=== PATIENT | male | born 1980 | race Caucasian/White ===

== ENCOUNTER 2017-02-21 22:41 | Emergency (ER) | payer OTHER ==
--- NOTE | ~2017-02-21 | ER ---
PATIENT'S NAME: HIEN ORELLANA [facility] AGE: 36 Y [address] ROOM: [place] [address] LOCATION: [facility] ADMIT DATE: 02/21/2017 ER/Outpatient Report DISCHARGE DATE: 02/22/2017 FAMILY PHYSICIAN: PHYSICIAN, NO ATTENDING PHYSICIAN: Harjeet Andrade CHIEF COMPLAINT: Chest and back pain. HISTORY OF PRESENT ILLNESS: The patient states that he had this 1 time when he was 16. He experiences a very focal sharp stabbing pain. It is worse with motion and deep breathing over the left chest that is point tender. It is over the sixth rib. He does feel occasionally in his back. He has been working at [employer] and feels like the symptoms were getting worse. He has been taking Naprosyn twice daily, but just wanted to get things checked out to make sure this was not something different. He is a smoker. His symptoms had been intermittent and lasts between minutes to hours over the last several days. His current episode has been present for 3 hours. FAMILY HISTORY: He has a family history of heart disease, but no personal history. No other medical issues. PAST MEDICAL HISTORY: Documented on the record and reviewed by me. SOCIAL HISTORY: Documented on the record and reviewed by me. MEDICATIONS: Documented on the record and reviewed by me. ALLERGIES: DOCUMENTED ON THE RECORD AND REVIEWED BY ME. REVIEW OF SYSTEMS: All systems reviewed and negative except as noted in the HPI. PHYSICAL EXAMINATION: VITAL SIGNS: Blood pressure 151/70, pulse is 69, respiratory rate is 16, temperature 98.7, SpO2 is 97% on room air. Pain is 8/10. GENERAL: Age-appropriate male. No obvious pain or distress. Resting comfortably on exam table talking on his phone. NEUROLOGIC: Awake and alert. GCS 15. No focal deficits. No obvious PATIENT'S NAME: HIEN ORELLANA [facility] AGE: 36 Y [address] ROOM: [place] [address] LOCATION: [facility] ADMIT DATE: 02/21/2017 ER/Outpatient Report DISCHARGE DATE: 02/22/2017 FAMILY PHYSICIAN: PHYSICIAN, NO ATTENDING PHYSICIAN: Harjeet Andrade asymmetry on exam. HEENT: Normocephalic, atraumatic. Eyes are PERRL. Oropharynx is clear. Teeth in poor repair. NECK: Supple. Trachea is midline. CHEST: Heart is regular rate and rhythm with no murmurs. LUNGS: Clear to auscultation bilaterally with no rhonchi, wheezes, or rales. There is point tenderness which exactly reproduces pain over the left sixth costochondral junction. It is not tender around that spot. It is only on that spot. No erythema. No rashes. BACK: Nontender to palpation throughout. No CVA tenderness. ABDOMEN: Soft, nontender, and nondistended. No rebound, guarding or masses. EXTREMITIES: Warm and well perfused. No deformities. SKIN: Skin is intact. No rashes. LABORATORY DATA AND X-RAYS: Chest x-ray unremarkable per my read. Initial and repeat EKGs are unremarkable. Initial and repeat troponins are below threshold. CK-MB not consistent with ischemia. CBC is unremarkable. INR is 1.0. CMS is without significant abnormality. IMPRESSION: Costochondritis, noncardiac chest pain. EMERGENCY DEPARTMENT COURSE: The patient was seen and evaluated as above. His presentation is not consistent with coronary artery disease. Not consistent with other deadly causes of chest pain. The patient was not given any medications in the emergency department and had improvement in his pain. His presentation is very atypical of ACS and he has risk factors of smoking in family history. No other concerning signs or symptoms. Based on his current presentation and history of same, I believe this is costochondritis. The patient needs to establish care with a primary care provider which I encouraged him to do now that he has insurance. All questions were answered and the patient was discharged in good condition. MD HUMBERTO MIRELES/johanna /[id number] d: 02/23/17646 t: 03/04/17 0935, OUTPATIENT REPORT
[2017-02-21 23:16] LABS: HEMATOCRIT 43.1 % (37.0-53.0); MCH 32.3 pg (27.0-34.0); MCHC 34.8 gm/dL (32.0-36.5); MCV 92.9 fl (83.0-98.0); PLATELET COUNT 248 K/uL (150-450); RBC 4.64 M/uL (4.00-6.00); RDW-CV 12.1 % (11.9-14.6); WBC 7.6 K/uL (4.0-11.0)
[2017-02-21 23:24] LABS: PROTIME 10.9 SECONDS (9.6-11.1); PTT 28 SECONDS (25-32)
[2017-02-21 23:41] LABS: ALBUMIN 4.4 gm/dL (3.5-5.0); ALK PHOS 43 IU/L (33-138); ALT 19 IU/L (12-78); ANION GAP 16.4 (10.0-19.0); AST 16 IU/L (10-40); BLOOD UREA NITROGEN 8 mg/dL (6-24); CALCIUM 8.9 mg/dL (8.5-10.5); CHLORIDE 105 mMol/L (96-110); CO2 25 mMol/L (22-32); CPK 201 IU/L (35-332); CREATININE 0.9 mg/dL (0.6-1.3); ESTIMATED GFR (MDRD EQUATION) > 60; MAGNESIUM 2.2 mg/dL (1.3-2.6); POTASSIUM 3.4 mMol/L (3.7-5.1); SODIUM 143 mMol/L (135-145); TOTAL BILIRUBIN 0.4 mg/dL (0.0-1.5); TOTAL PROTEIN 7.6 g/dL (6.0-8.4)
[2017-02-22 00:12] LABS: ABSOLUTE NEUTROPHIL CT (ANC) 4.6 K/uL (1.4-9.0); BANDED NEUTROPHIL # 0.2 K/uL (0.0-0.1); BANDED NEUTROPHILS % 2 %; LYMPHOCYTE # 2.6 K/uL (0.8-4.0); LYMPHOCYTE % 34 %; MONOCYTE # 0.2 K/uL (0.0-1.0); SEGMENTED NEUTROPHIL # 4.5 K/uL (1.4-9.0); SEGMENTED NEUTROPHIL % 59 %
[2017-02-22 01:30] LABS: CPK 183 IU/L (35-332)
== END 2017-02-22 01:56 | disposition disaster alternative care site (69) ==
LOC: GMED 22:41
PROVIDERS: Emergency Medicine
DX: M94.0 Chondrocostal junction syndrome [Tietze] (principal); F17.200 Nicotine dependence, unspecified, uncomplicated

== ENCOUNTER 2017-07-04 11:32 | Emergency (ER) | payer OTHER ==
--- NOTE | ~2017-07-04 | ER ---
PATIENT'S NAME: HIEN ORELLANA [facility] AGE: 37 Y [address] ROOM: [place] [address] LOCATION: [facility] ADMIT DATE: 07/04/2017 ER/Outpatient Report DISCHARGE DATE: FAMILY PHYSICIAN: PHYSICIAN, NO ATTENDING PHYSICIAN: Harjeet Andrade CHIEF COMPLAINT: Bug bite on the right arm. HISTORY OF PRESENT ILLNESS: This patient two days ago woke up with soreness in his right forearm. Since then, the area has gotten redder and more painful. He has also had some drainage from two different open areas for the past 36 hours. He does not have any history of having any previous open areas or no history of MRSA. There has not been any itch to the area. He does not have a primary care provider. PAST MEDICAL HISTORY: None. ALLERGIES: PENICILLIN AND BEE STINGS. HOME MEDICATIONS: None. SOCIAL HISTORY: Smokes a half pack cigarettes per day. He rarely uses alcohol. He rarely uses marijuana. REVIEW OF SYSTEMS: GENERAL: The patient denies any change in his weight. He denies any recent fevers, chills, or sweats. He denies any recent illnesses. HEENT: He denies headaches or visual changes. He has not had any recent upper respiratory illnesses. CARDIOVASCULAR: No chest pain or palpitations. RESPIRATORY: No shortness of breath or cough. GASTROINTESTINAL: No nausea, vomiting, diarrhea, or constipation. He denies abdominal pain. GENITOURINARY: No complaints. NEUROLOGIC: No complaints. MUSCULOSKELETAL: No complaints. HEMATOLOGY: No history of bleeding disorder. SKIN: He has complaints of this lesion on his right arm. He reports that is a bug bite. However, he is unsure if it is a bug bite or not. He went to bed without it and woke up with it. PATIENT'S NAME: HIEN ORELLANA [facility] AGE: 37 Y [address] ROOM: [place] [address] LOCATION: [facility] ADMIT DATE: 07/04/2017 ER/Outpatient Report DISCHARGE DATE: FAMILY PHYSICIAN: PHYSICIAN, NO ATTENDING PHYSICIAN: Harjeet Andrade ENDOCRINE: No complaints. PSYCH: No complaints. PHYSICAL EXAMINATION: VITAL SIGNS: Temperature 97.3, pulse of 74, respiratory rate of 16, and blood pressure 139/63. GENERAL APPEARANCE: He is alert and oriented. [place] warm and dry. Smells of cigarette smoke. HEENT. Head is normocephalic. Eyes: PERRL. Ears: TMs pearly prado with light reflex. Landmarks visible. Nose: Turbinates are pink with no rhinorrhea with slightly edematous. Throat: Pharynx is without edema, erythema, or exudate. Uvula is midline. Mucous membranes moist. NECK: Supple. No lymphadenopathy. LUNGS: Clear to anterior and posterior auscultation. No adventitious lung sounds. Respiratory effort is normal. HEART: Rate is regular. Normal S1, S2. No murmurs. ABDOMEN: Soft and nontender. Bowel sounds present in all 4 quadrants. EXTREMITIES: Cap refill less than 3 seconds. No peripheral edema. Peripheral pulses are 2+. NEURO: Cranial nerves II through XII are grossly intact. INTEGUMENTARY: The patient has an erythematous indurated area on his right posterior forearm, measures approximately 3 cm in diameter. Within that, there are two open areas that do have a spot of purulent drainage. There is really no fluctuance to palpation. EMERGENCY DEPARTMENT COURSE: Area was cleansed with ChloraPrep and then dried with a gauze bandage. I was able to express purulent drainage from the larger of the two openings and obtained cultures. IMPRESSION/ASSESSMENT: Abscess right forearm likely MRSA. DISPOSITION AND PLAN: The patient is to use warm soaks two to three times a day and scrub the area with soapy water. He is to keep it covered. He is to call Dr. Dior on Wednesday for the results of the culture sooner if worse. He is to follow up sooner. If he has any fevers or chills, pain or other concerns. He was a given a prescription for Bactrim DS, one twice daily to take for seven days. I did child care counselor him that scrubbing the wound and using hot soaks may make this better. He could try that for 24 hours if he would like as he reports that there has been really no change in the appearance of this area for the past 24 hours. If he feels it is getting it all worse, he is to go ahead to start the antibiotic. PATIENT'S NAME: HIEN ORELLANA [facility] AGE: 37 Y [address] ROOM: [place] [address] LOCATION: [facility] ADMIT DATE: 07/04/2017 ER/Outpatient Report DISCHARGE DATE: FAMILY PHYSICIAN: PHYSICIANSUZAN ATTENDING PHYSICIAN: Harjeet Andrade VIC LANEY HARMON FOR MD LAST MIRELES/modl /[id number] d: 07/04/17 1852 t: 07/15/17 1629, OUTPATIENT REPORT
== END 2017-07-04 12:15 | disposition disaster alternative care site (69) ==
LOC: GMED 11:32
DX: L02.413 Cutaneous abscess of right upper limb (principal); F17.210 Nicotine dependence, cigarettes, uncomplicated; Z88.0 Allergy status to penicillin; Z79.899 Other long term (current) drug therapy